=== PATIENT | female | born 1995 | race Caucasian/White ===

== ENCOUNTER 2021-03-29 02:28 | Inpatient (IN) | payer SELFPAY, OTHER ==
[2021-03-29] VITALS (22 sets, daily range): BP systolic 101–111; BP diastolic 59–72; PULSE 79–115; RESP 14; TEMP 36.2–36.8; O2SAT 99–100; BMI 22.3
[2021-03-29] MEDS: Lactated Ringers 500 ML 999 ML IV (02:32)
--- NOTE | 2021-03-29 03:01 | HP.PCM.OB_ITS ---
HPI - General General Date of Admission: 03/29/21 HPI Narrative CHANDAN AHN, is a 25 F who presents with ctxs all day. Maternal Data Information Final SHAYAN: 04/28/21 PFSH PFSH Allergy/AdvReac Type Severity Reaction Status Date / Time No Known Allergies Allergy Verified 03/29/21 03:24 no significant family history History Addt'l History: [facility] with CNM Vital Signs Vital Signs Vital Signs: 03/29/21 02:09 03/29/21 02:14 03/29/21 02:19 Temperature Pulse Rate 91 103 H 91 Blood Pressure BP Systolic BP Diastolic Pulse Ox 99 100 100 03/29/21 02:23 03/29/21 02:24 03/29/21 02:26 Temperature 97.3 F L Pulse Rate 101 H 106 H Blood Pressure 105/72 BP Systolic 105 BP Diastolic 72 Pulse Ox 100 03/29/21 02:29 03/29/21 02:34 03/29/21 02:39 Temperature Pulse Rate 115 H 105 H 94 Blood Pressure BP Systolic BP Diastolic Pulse Ox 100 100 100 03/29/21 02:44 03/29/21 02:49 Temperature Pulse Rate 108 H 107 H Blood Pressure BP Systolic BP Diastolic Pulse Ox 100 100 Physical Exam Const alert and oriented x3 GI soft to palpation, non-tender and non-distended Inspection: gravid Narrative: cvx - 8.5/70/-2 Labs Labs Labs: Blood Type Pending Antibody Screen Pending Hct 36.2 % (37-47) L Hgb 12.2 g/dL (12.0-15.0) Assessment & Plan (1) Intrauterine , antepartum: COMMENT: TAUS - shows vtx fetus with edema & no FCA. Findings discussed with patient and her family. Emotional support given. (2) labor: PLAN: Admit to L&D Patient now complete & pushing records from [facility] reviewed
[2021-03-29 03:13] LABS: Absolute Lymphocyte Count 2.45 X10^3/uL (0.83-4.51); Basophil# 0.04 X10^3/uL; Basophil% 0.3 % (0-1); Eosinophil# 0.11 X10^3/uL; Eosinophils% 0.9 % (0-5); Hematocrit 36.2 % (37-47); Hemoglobin 12.2 g/dL (12.0-15.0); Lymphocyte # 2.45 X10^3/ul (0.83-4.51); Lymphocyte % 19.6 % (19-41); Mean Corp Hgb Conc 33.7 g/dL (32-36); Mean Corpuscular Hgb 32.4 pg (27.0-32.0); Mean Corpuscular Volume 96.3 fL (81-99); Mean Platelet Vol. 9.7 fl (6.2-12.0); Monocyte# 0.82 X10^3/uL; Monocyte% 6.6 % (0-10); NRBC Flagged by Analyzer 0 % (0-5); Neutrophil # 8.96 X10^3/uL (2.7-7.7); Neutrophil % 71.6 % (47-70); Platelet Count 205 K/mm3 (150-450); RBC Distribution Width CV 12.9 % (11.6-14.6); RBC Distribution Width SD 45.6 fl (35.1-43.9); Red Blood Count 3.76 M/mm3 (4.2-5.4); White Blood Count 12.5 K/mm3 (4.4-11.0)
[2021-03-29] MEDS: Oxytocin 30 units/NS 500 ml 30 UNITS/500 ML IV.SOLN 334 UNITS IV (03:17)
--- NOTE | 2021-03-29 03:20 | PLAC_PTH ---
PATIENT: CHANDAN AHN LOC: [facility] U#:[id number] AGE/SX: 25/F ROOM: WP014 RE03/29/[address]: Dr. Yifan Mendez MD : 1995 BED: 1 DIS: 03/29/2021 SPEC #: [id number] RECD: 03/29/21 04:06 STATUS: PARI REQuintin #: [id number] VALERIE: 03/29/21 03:[address]: Yifan Mendez DEPT: SURGICAL PATHOLOGY RECD BY: Valentina Ohara ENTERED: 03/29/21 08:36 SP TYPE: PLACENTA OTHR DR: Dr. Nahum Sainz, DO Tissues: Placenta, NOS Procedures: Surgery Specimen Level V HEADER OPERATION: Vaginal delivery PRE-OP DIAGNOSIS: demise TISSUE SUBMITTED: Placenta MICROSCOPIC DIAGNOSIS Mason placenta (325 gm): Umbilical cord ? trivascular with no inflammation Placental membranes ? acute deciduitis, mild Placental disc ? Severe hypoplasia of villi (grade IIB). Focal hypodropic change of villi. Focal organizing intraparenchymal hemorrhage. Increased intraparenchymal fibrin plaques and [place]-Jamar change. AM:lucia 03/31/2021 COMMENT Case has been reviewed in consultation with Dr. Chapman who concurs with the above diagnosis. IDC:SJ MICROSCOPIC DESCRIPTION Slides are reviewed. GROSS DESCRIPTION SPECIMEN: PLACENTA / CLINICAL INFORMATION: A. Weight: Not noted B. Gestational Age: 35 weeks C. Sex: Male PLACENTAL WEIGHT (POST FIXATION): 325 gm PLACENTAL DIMENSIONS: 15 x 12 x 3.5 cm PLACENTAL SHAPE: Usual ovoid PLACENTAL WEIGHT FOR GESTATIONAL AGE: Within 10-99th percentile MEMBRANES - Present A. Insertion: Marginal B. Site of rupture from edge: 5 cm from edge of placental disc C. Color of membrane: Brooks-holt D. Abnormalities: None UMBILICAL CORD - Present A. Color: Brooks-holt B. Insertion: Paracentral C. Length: 38 cm D. Diameter: 1-1.5 cm E. Number of vessels: Three F. Abnormalities: Appears grayish and macerated PLACENTAL DISC - Present A. Color of surface: Brooks-holt B. surface abnormalities: None C. Maternal cotyledons: Intact with minimal tears D. Attached retro placental clot: No clot E. Cut surface: Dark red and spongy F. Lesions: Sections reveal a brooks, indurated to hemorrhagic area measuring 1.5 cm in greatest dimension. G. Separate clot: Absent SECTIONS SUBMITTED: 1. Membrane roll 2. Cord, maternal end 3. Cord, end 4. Placental disc, and maternal surfaces, lesion 5. Placental disc, and maternal surfaces 6. Placental disc, and maternal surfaces SJ:lucia 03/30/21 TC:2 CPT: 82958
[2021-03-29] MEDS: Ketorolac 30 MG/ML Syringe IV (03:26)
--- NOTE | 2021-03-29 03:42 | EX.PCM.OBRPT ---
Maternal Data Information Final SHAYAN: 04/28/21 (35&5) Vaginal Delivery Maternal Presentation Maternal Presentation: Active Labor Operative Information Date of Procedure: 03/29/21 Pre-Operative Diagnosis: Intrauterine demise Post-Operative Diagnosis: Same Surgery / Procedure Performed: Spontaneous Vaginal Delivery Type of Anesthesia: None Estimated Blood Loss: 250ml Time of Delivery: 03:44 Findings Description of Procedure: Patient pushed in hands and knees when C/C/+2. She pushed to deliver the head followed by the shoulders and body easily. 3VC clamped & cut. wrapped in blanket and given to mom. Placenta delivered with gentle traction and good uterine tone obtained. Presentation: Vertex Amniotic Membrane Rupture Type: Artificial Amniotic Fluid Description: Bloody Placental Delivery Description: Expressed Placenta Disposition: [facility] Specimen(s) Removed: Placenta Cord Vessel Description: 3 Vessels Cord Entanglement: Around neck x 2, tight Infant A Gender: Male ( edema noted. ) Delayed Cord Clamping: No Post Vaginal Delivery Medications Given After Delivery: IV Pitocin Episiotomy Description: None Laceration: None Complication Complications: None
[2021-03-29 04:14] LABS: Pathology Specimen OB SEE PATHOLOGY REPORT
[2021-03-29] MEDS: Acetaminophen 500 MG Tablet PO (05:24)
--- NOTE | 2021-03-29 07:54 | NURSING ---
infant weight 1995 grams, length 17in, head circumference 11.75in
--- NOTE | 2021-03-29 08:27 | PCM.PN.OB ---
Subjective Subjective Patient seen at bedside. Family and present. Patient is ambulating and voiding without difficulty. Taking Motrin PO for cramps. Desires discharge home today. Objective Data Objective Data Vital Signs: Vital Signs Temp Pulse Resp BP Pulse Ox 98.2 F 88 14 101/64 100 03/29/21 07:45 03/29/21 07:45 03/29/21 07:45 03/29/21 07:45 03/29/21 02:49 Oxygen Delivery Method Room Air Weight: 118 lb Body Mass Index (BMI) 22.3 Intake & Output: Intake and Output for Last 24 Hours 03/27/21 03/28/21 03/29/21 23:59 23:59 23:59 Intake Total 1000 / 1000 Balance 1000 / 1000 Lab / Micro Data Result Diagrams: 03/29/21 02:35 Labs: Laboratory Results - last 24 hr 03/29/21 03/29/21 02:35 02:35 WBC 12.5 H RBC 3.76 L Hgb 12.2 Hct 36.2 L MCV 96.3 MCH 32.4 H MCHC 33.7 RDW Std Deviation 45.6 H RDW Coeff of [place] 12.9 Plt Count 205 MPV 9.7 Immature Gran % (Auto) 1.000 H Neut % (Auto) 71.6 H Lymph % (Auto) 19.6 [place] % (Auto) 6.6 Eos % (Auto) 0.9 Baso % (Auto) 0.3 Absolute Neuts (auto) 9.0 H Absolute Lymphs (auto) 2.45 Nucleated RBC % 0 Blood Type A POSITIVE Antibody Screen NEGATIVE ROS Eyes Eyes: Denies blurry vision, change in vision or spots in vision ENT HEENT: Denies dizziness or headache(s) Cardiovascular Cardiovascular: Denies abdominal pain, chest pain or dyspnea Respiratory/Chest Respiratory/Chest: Denies cough, dyspnea, shortness of breath at rest or shortness of breath with exertion Gastrointestinal Gastrointestinal: Denies abdominal pain, diarrhea or vomiting Genitourinary Genitourinary: Denies change in urinary stream, difficulty urinating or dysuria Musculoskeletal Musculoskeletal: Reports none Integumentary Integumentary: Denies rash Neurologic Neurologic: Denies dizziness, headache(s), memory loss or weakness Psychiatric Psychiatric: Reports none Physical Exam Const alert and no apparent distress General Appearance: cooperative and comfortable Exam Limitations: no limitations HEENT normocephalic Eyes General Eye: normal appearance of both eyes Neck full ROM General: normal visual inspection Chest Chest: symmetrical chest wall rise Resp normal respiratory effort and normal air movement Effort and Inspection: symmetric chest movement Auscultation: clear to auscultation bilaterally Cardio regular rate and regular rhythm GI normal to inspection, nondistended, normoactive bowel sounds Back/Spine normal ROM Extremity full ROM and no calf tenderness General Extremity: normal exam except as noted Skin no rashes or lesions noted Neuro CN's II-XII intact bilaterally Psych mental status grossly normal Assessment & Plan (1) Intrauterine , antepartum: QUALIFIERS: Fetus number: single or unspecified fetus Qualified Code(s): O36.4XX0 - Maternal care for intrauterine , not applicable or unspecified COMMENT: TAUS - shows vtx fetus with edema & no FCA. Findings discussed with patient and her family. Emotional support given. (2) (spontaneous vaginal delivery): PLAN: PPD 1 demise Routine care Follow up with family doctor/automation control technician for PP care Discharge home
--- NOTE | 2021-03-29 08:35 | PCM.DC ---
Discharge Instructions Diet Discharge Diet: No restrictions Activity May resume sexual activity in: 6-8 weeks Weight Bearing Status: Weight bearing as tolerated Dressing / Incision Call your doctor if you observe: Fever of 101 or Higher, Inability to urinate, Using more than 1 pad per hour, Shortness of breath, Chest pain, Calf discomfort and Uncontrolled pain Follow Up Care Please Follow Up With: Genoveva Carlos CNM When: 2 weeks virtual visit/ 6 weeks in office Test Results: Test results from this visit will be discussed in further detail at your follow-up appointment, if applicable. Discharge Plan Admission Admit Date/Time: 03/29/21 02:28 Attending Provider: Yifan Mendez Primary Care Provider: Nahum Sainz Instructions Patient Instructions: After a Vaginal Discharge Orders/Prescriptions Prescriptions: No Action 1 mg Tablet 1 tab PO DAILY RF: 0 Referrals / Follow Up: Nahum Sainz DO [Primary Care Provider] - Disposition Disposition (needs filled in before D/C Order can be placed): Home, self care
== END 2021-03-29 09:45 | disposition home or self-care (01) | DRG 807 ==
LOC: WPOUT 02:28 → WP 02:28
PROVIDERS: Admitting Provider Obstetrics & Gynecology; PCP Family Medicine; Visit Provider Obstetrics & Gynecology
DX: O36.4XX0 Maternal care for intrauterine death, not applicable or unspecified (principal); Z37.1 Single stillbirth; O69.1XX0 Labor and delivery complicated by cord around neck, with compression, not applicable or unspecified; Z3A.35 35 weeks gestation of pregnancy
CPT/HCPCS: 59050; 76815; 85025; 86850; 86900; 86901; 88307; 99218; J7120; G0378

== ENCOUNTER 2022-03-28 01:45 | Outpatient (CLI) | payer OTHER, SELFPAY ==
[2022-03-28 02:03] VITALS: BP 121/72; PULSE 86; TEMP 37.2
[2022-03-28 02:31] LABS: Color, Urine Straw (Yellow); Glucose, Dipstick Normal (Normal); Ketone-Dipstick Negative (Negative); Leukocyte Esterase-Dipstick Negative /ul (Negative); Nitrite-Dipstick Negative (Negative); Occult Blood-Urine Negative /ul (Negative); Protein-Dipstick Negative (Negative); Specific Gravity, Urine 1.005 (1.002-1.030); Urine Bilirubin Dipstick Negative (Negative); Urine Clarity Clear (Clear); Urine Urobilinogen Normal (Normal)
[2022-03-28 02:39] VITALS: BMI 22.4
[2022-03-28 03:32] LABS: Group B Strep DNA By PCR Negative (Negative); Internal Control PASS; Probe Check PASS; Specimen Processing Control PASS
[2022-03-28 04:26] VITALS: BP 99/59; PULSE 85
--- NOTE | 2022-04-14 13:38 | OB.TRI.NOTE ---
HPI - General General Date of Service: 03/28/22 HPI Narrative CHANDAN AHN, is a 26 F who presents ctxs. PFSH PFSH Medical History (Updated 04/14/22 @ 13:[address] Yifan Mendez MD) depression Threatened labor Home Medications [id number] 1 mg tablet 1 tab PO DAILY 03/29/21 [History Last Taken 03/27/22 09:00] Allergy/AdvReac Type Severity Reaction Status Date / Time No Known Allergies Allergy Verified 03/28/22 02:31 Social History Smoking Status: Never smoker History Elective abortions Hx Para 2 Spontaneous abortions Hx # Term Pregnancies Ectopic pregnancies Hx # Pregnancies Multiple births # of living children Assessment & Plan (1) Threatened labor: PLAN: Plan NST for threatened PTL
== END 2022-03-28 04:55 | disposition home or self-care (01) ==
LOC: WPOUT 01:50 → WP 01:50
PROVIDERS: PCP Family Medicine; Visit Provider Obstetrics & Gynecology
DX: O47.9 False labor, unspecified (principal); Z3A.00 Weeks of gestation of pregnancy not specified
CPT/HCPCS: 59025; 59050; 81002; 87081; 87653; 99218; G0378